=== PATIENT | female | born 1975 | race Caucasian/White ===

== ENCOUNTER 2016-08-02 12:10 | Emergency (ER) | payer MEDICAID ==
[~2016-08-02] VITALS: Ht 162.6 cm; Wt 64.4 kg
--- NOTE | 2016-08-02 12:36 | NUR ---
Patient discharged to home in stable conditon. Written and verbal after care instructions given to patient. Patient verbalizes understanding of instructions.
== END 2016-08-02 12:38 | disposition home or self-care (01) ==
LOC: ER 12:10
DX: J40 Bronchitis, not specified as acute or chronic (principal); Z88.8 Allergy status to other drugs, medicaments and biological substances
CPT/HCPCS: 99283; A4663